=== PATIENT | male | born 1960 | race Caucasian/White ===

== ENCOUNTER → 2019-04-21 | Outpatient (CLI) | payer BC ==
--- NOTE | 2019-04-21 16:01 | Diagnostic Imaging Report ---
INDICATION: Injury to right foot with continued pain. TIME OF EXAM: 3:45 PM FINDINGS: Three views of the right foot were obtained. Metatarsals are intact. Phalanges are intact. Midfoot and hindfoot are unremarkable apart from a small plantar calcaneal spur. No fractures are seen. IMPRESSION: No acute bony abnormality is detected. Dictated by: Dictated on workstation # [id number]
--- NOTE | 2019-04-21 16:05 | Diagnostic Imaging Report ---
INDICATION: Injury to the right knee with continued pain. TIME OF EXAMINATION: 3:42 PM. TECHNIQUE: Three views of the right knee were obtained. FINDINGS: The alignment is normal. There is some mild medial and patellofemoral compartmental degenerative change. No fracture, dislocation, or effusion is detected. IMPRESSION: No acute bony abnormality is detected. Dictated by: Dictated on workstation # [id number]
== END ==
LOC: RAD FS 15:36
PROVIDERS: ATTEND Nurse Practitioner Family
DX: S99.921A Unspecified injury of right foot, initial encounter (principal); S89.91XA Unspecified injury of right lower leg, initial encounter
CPT/HCPCS: 73562; 73630

== ENCOUNTER 2020-11-25 19:30 | Emergency (ER) | payer BC ==
[~2020-11-25] VITALS: Ht 167.7 cm; Wt 123.2 kg
[2020-11-25 19:44] LABS: HEMOGLOBIN 13.3 G/DL (13.3-17.7); MEAN CORPUSCULAR HEMOGLOBIN 33 PG (25-34); WHITE BLOOD COUNT 6.3 10^3/uL (4.3-11.0)
[2020-11-25 19:45] LABS: BASOPHILS % (AUTO) 1 % (0-10); EOSINOPHILS # (AUTO) 0.3 10^3/uL (0.0-0.3); EOSINOPHILS % (AUTO) 5 % (0-10); HEMATOCRIT 41 % (40-54); LYMPHOCYTES # (AUTO) 1.7 X 10^3 (1.0-4.0); LYMPHOCYTES % (AUTO) 27 % (12-44); MEAN CORPUSCULAR HGB CONC 33 G/DL (32-36); MEAN CORPUSCULAR VOLUME 101 FL (80-99); MEAN PLATELET VOLUME 10.6 FL (7.4-10.4); MONOCYTES # (AUTO) 0.4 X 10^3 (0.0-1.0); MONOCYTES % (AUTO) 6 % (0-12); NEUTROPHILS # (AUTO) 3.9 X 10^3 (1.8-7.8); NEUTROPHILS % (AUTO) 62 % (42-75); PLATELET COUNT 189 10^3/uL (130-400)
--- NOTE | 2020-11-25 19:49 | ED Cardiac General ---
History of Present Illness General Chief Complaint: Chest Pain Stated Complaint: CHEST PAIN Source: patient Exam Limitations: no limitations History of Present Illness Date Seen by Provider: Nov 25, 2020 Time Seen by Provider: 19:35 Initial Comments 60-year-old male presents ambulatory to the ER with onset of chest pain 30 minutes prior to arrival. Patient states he was on his way to [facility] and he started to feel some pressure in his chest and he began to get worse so he came to the ER and on arrival it was diminished significantly. Past medical history significant for mitral valve regurgitation, he has had recent work-up at [facility] including a heart cath October 2020 and is scheduled for mitral valve replacement December 14 at . He takes blood pressure medicine, is not on any anticoagulants and is never taken nitroglycerin. He does admit to exertional shortness of breath and chest pain that occurs primarily at work and is relieved by rest. This pain was similar, but he was not that active when it occurred. He denies any recent illness, fever or chills. He denies cough or shortness of air. He denies abdominal pain, nausea vomiting or diarrhea. Allergies and Home Medications Allergies Coded Allergies: No Known Drug Allergies (Unverified , 11/25/20) Home Medications Nitroglycerin 0.4 Mg Tab.subl, 0.4 MG SL UD PRN for CHEST PAIN Prescribed by: RONNY MCDANIEL on 11/25/202122 Patient Home Medication List Home Medication List Reviewed: Yes Review of Systems Review of Systems Constitutional: No dizziness, No fever, No malaise, No weakness Respiratory: Denies Shortness of Air Cardiovascular: Chest Pain, Edema (chronic, no change); Denies Palpitations, Denies Syncope Gastrointestinal: Denies Abdominal Pain, Denies Constipated, Denies Diarrhea, Denies Nausea, Denies Poor Appetite, Denies Vomiting Musculoskeletal: No back pain, No joint pain Skin: No change in color, No rash Past Ucsbdfg-[id number]-Bxanns Hx Past Med/Social Hx: Reviewed Nursing Past Med/Soc Hx Physical Exam Vital Signs Vital Signs - First Documented Capillary Refill : Height, Weight, BMI Height: '" Weight: lbs. oz. kg; BMI Method: General Appearance: No Apparent Distress, Obese HEENT: PERRL/EOMI, Normal ENT Inspection Neck: Normal Inspection, Non Tender, Supple Respiratory: Chest Non Tender, Lungs Clear, Normal Breath Sounds, No Accessory Muscle Use, No Respiratory Distress Cardiovascular: Regular Rate, Rhythm, No Edema, No JVD, Normal Peripheral Pulses Gastrointestinal: Non Tender, Soft Extremity: Normal Capillary Refill, Non Tender, No Calf Tenderness, Pedal Edema (and lower leg edema) Neurologic/Psychiatric: Alert, Oriented x3, Normal Mood/Affect Progress/Results/Core Measures Results/Orders Lab Results Laboratory Tests Test 11/25/20 19:38 11/25/20 20:47 Range/Units White Blood Count 6.3 4.3-11.0 10^3/uL Red Blood Count 4.02 L 4.35-5.85 10^6/uL Hemoglobin 13.3 13.3-17.7 G/DL Hematocrit 41 40-54 % Mean Corpuscular Volume 101 H 80-99 FL Mean Corpuscular Hemoglobin 33 25-34 PG Mean Corpuscular Hemoglobin Concent 33 32-36 G/DL Red Cell Distribution Width 16.4 H 10.0-14.5 % Platelet Count 189 130-400 10^3/uL Mean Platelet Volume 10.6 H 7.4-10.4 FL Immature Granulocyte % (Auto) 0 % Neutrophils (%) (Auto) 62 42-75 % Lymphocytes (%) (Auto) 27 12-44 % Monocytes (%) (Auto) 6 0-12 % Eosinophils (%) (Auto) 5 0-10 % Basophils (%) (Auto) 1 0-10 % Neutrophils # (Auto) 3.9 1.8-7.8 X 10^3 Lymphocytes # (Auto) 1.7 1.0-4.0 X 10^3 Monocytes # (Auto) 0.4 0.0-1.0 X 10^3 Eosinophils # (Auto) 0.3 0.0-0.3 10^3/uL Basophils # (Auto) 0.0 0.0-0.1 10^3/uL Immature Granulocyte # (Auto) 0.0 0.0-0.1 10^3/uL Sodium Level 141 135-145 MMOL/L Potassium Level 3.9 3.6-5.0 MMOL/L Chloride Level 105 98-107 MMOL/L Carbon Dioxide Level 23 21-32 MMOL/L Anion Gap 13 5-14 MMOL/L Blood Urea Nitrogen 17 7-18 MG/DL Creatinine 1.87 H 0.60-1.30 MG/DL Estimat Glomerular Filtration Rate 37 BUN/Creatinine Ratio 9 Glucose Level 160 H 70-105 MG/DL Calcium Level 9.6 8.5-10.1 MG/DL Corrected Calcium 9.2 8.5-10.1 MG/DL Total Bilirubin 0.8 0.1-1.0 MG/DL Aspartate Amino Transf (AST/SGOT) 15 5-34 U/L Alanine Aminotransferase (ALT/SGPT) 8 0-55 U/L Alkaline Phosphatase 72 40-136 U/L Troponin I < 0.30 < 0.30 <0.30 NG/ML Total Protein 7.5 6.4-8.2 GM/DL Albumin 4.5 3.2-4.5 GM/DL My Orders Orders - RONNY MCDANIEL DO Cbc With Automated Diff (11/25/20 19:41) Comprehensive Metabolic Panel (11/25/20 19:41) Troponin I Fs (11/25/20 19:41) Ekg Tracing (11/25/20 19:41) Chest 1 View Ap/Pa Only (11/25/20 19:41) Aspirin Chewable Tablet (Baby Aspirin Ch (11/25/20 20:00) Metoprolol Tartrate Injection (Lopressor (11/25/20 20:00) Troponin I Fs (11/25/20 20:45) Troponin I Fs (11/25/20 20:47) Medications Given in ED Current Medications Medications Dose Ordered Sig/Maximo Route Start Time Stop Time Status Last Admin Dose Admin Aspirin 324 mg ONCE ONCE PO 11/25/20 20:00 11/25/20 20:01 DC 11/25/20 20:02 324 MG Metoprolol Tartrate 5 mg ONCE ONCE IV 11/25/20 20:00 11/25/20 20:01 DC 11/25/20 20:01 5 MG Vital Signs/I&O 11/25/20 11/25/20 11/25/20 11/25/20 19:30 19:30 20:49 21:11 Temp 37.8 37.8 37.1 Pulse 100 86 88 Resp 22 17 14 B/P (MAP) 163/79 (107) 133/60 (84) 116/72 (87) Pulse Ox 94 94 95 O2 Delivery Room Air Room Air Room Air Room Air Progress Progress Note : Time: 20:17 Progress Note Patient asymptomatic, chest discomfort resolved. No ischemic or acute changes on ECG and lab work is unremarkable, Troponin negative. Will repeat Trop in 1 hour. 2119- Patient remains asymptomatic, VSS w BP 116/72 and HR 85. Repeat hs Troponin negative. 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 Rx for NTG to take as needed to anginal pain. Pt agrees, expresses understanding and will call 911 or go to the nearest ER for any unrelieved CP. Initial ECG Impression Date: Nov 25, 2020 Initial ECG Impression Time: 19:38 Initial ECG Rate: 100 Initial ECG Rhythm: Normal Sinus Initial ECG Intervals: Normal Initial ECG Comparisson: No Previous ECG Available Diagnostic Imaging Diagonstic Imaging: Xray Plain Films/CT/US/NM/MRI: chest Comments EXAMINATION: Portable upright AP view of the chest was obtained. COMPARISON: There is no previous study for comparison. FINDINGS: There is suboptimal inspiration. There is mild cardiomegaly and pulmonary venous congestion. There does appear to be mild perihilar atelectasis, greater on the right. No pneumothorax, consolidation or pleural fluid is seen. IMPRESSION: Limited study due to hypoventilation. There is evidence of probable perihilar atelectasis although follow-up study with PA and lateral projections would be of use. Dictated on workstation # [id number] Dict: 11/25/202017 Trans: 11/25/202026 PJE [id number] Interpreted by: VIOLA PEREZ MD Electronically signed by Departure Impression Primary Impression: Chest pain on exertion Disposition: HOME, SELF-CARE Condition: Improved Departure-Patient Inst. Decision time for Depature: 21:22 Referrals: [place] MD (PCP/Family) Primary Care Physician Patient Instructions: Angina (DC), Chest Pain (DC) Scripts Nitroglycerin (Nitroglycerin) 0.4 Mg Tab.subl 0.4 MG SL UD PRN for CHEST PAIN, #20 TAB Prov: RONNY MCDANIEL DO 11/25/20 JEAN PAULSTRONNY AMOR DO Nov 25, 2020 19:49
[2020-11-25] MEDS ORDERED: meTOprolol 5 MG/5 ML (LOPRESSOR) VIAL IV ONE (20:00)
[2020-11-25] MEDS ORDERED: ASPIRIN 81 MG CHEW (CHILDREN'S ASA) PO ONE (20:00)
[2020-11-25 20:04] LABS: BUN/CREATININE RATIO 9; CARBON DIOXIDE 23 MMOL/L (21-32); CHLORIDE 105 MMOL/L (98-107); CREATININE SERUM 1.87 MG/DL (0.60-1.30); GFR ESTIMATED 37; POTASSIUM 3.9 MMOL/L (3.6-5.0); SODIUM 141 MMOL/L (135-145)
[2020-11-25 20:05] LABS: ALANINE AMINOTRANSFERASE 8 U/L (0-55); ALBUMIN 4.5 GM/DL (3.2-4.5); ALKALINE PHOSPHATASE 72 U/L (40-136); BILIRUBIN,TOTAL 0.8 MG/DL (0.1-1.0); CALCIUM 9.6 MG/DL (8.5-10.1); GLUCOSE 160 MG/DL (70-105); TOTAL PROTEIN 7.5 GM/DL (6.4-8.2)
--- NOTE | 2020-11-25 20:19 | NUR ---
Called Francisca patient's with update.
--- NOTE | 2020-11-25 20:29 | Diagnostic Imaging Report ---
INDICATION: Chest pain. EXAMINATION: Portable upright AP view of the chest was obtained. COMPARISON: There is no previous study for comparison. FINDINGS: There is suboptimal inspiration. There is mild cardiomegaly and pulmonary venous congestion. There does appear to be mild perihilar atelectasis, greater on the right. No pneumothorax, consolidation or pleural fluid is seen. IMPRESSION: Limited study due to hypoventilation. There is evidence of probable perihilar atelectasis although follow-up study with PA and lateral projections would be of use. Dictated by: Dictated on workstation # [id number]
[2020-11-25] MEDS ORDERED: NITR0.4T39 SL (21:23)
[2020-11-25 21:32] VITALS: BP 132/72
== END 2020-11-25 21:32 ==
LOC: EDUNIT# 19:30 → ER FS 19:32
DX: R07.89 Other chest pain (principal); E66.9 Obesity, unspecified
CPT/HCPCS: 36415; 71045; 80053; 84484; 85025; 93005